=== PATIENT | female | born 1940 | race Caucasian/White ===

== ENCOUNTER 2018-10-28 22:50 | Inpatient (IN) | payer BC, MEDICARE ==
[~2018-10-28] VITALS: Ht 162.6 cm; Wt 63.5 kg
[2018-10-28 22:50] VITALS: BP 114/49
--- NOTE | 2018-10-28 22:50 | NUR ---
ED Nurse Note: pt brought in by [facility] from home c/o sob progressively worsen. pt received breathing tx x1 enr. pt AA&ox4, gcs=15, skin warm and dry, tachypnea, normal skin s/s, LS= exp wheezing to auscultation, -n/v/d, +edema BLE, unable to assess gait at this time. NSR, o2sat 86% on RA, o2=2L via NC started ERMD notified, pt 96% on oxygen, skin intact, family at the bedside, vss, will cont monitor. RT contacted
[2018-10-28] MEDS ORDERED: Solu-MEDROL 125mg Inj IVP ONE (23:30)
[2018-10-28] MEDS ORDERED: Albuterol ud Inhalation HHN ONE (23:30)
[2018-10-28] MEDS ORDERED: Ipratropium 0.02% Inh Soln 2.5ml UD HHN ONE (23:30)
[2018-10-28] MEDS ORDERED: Norco 5mg/325mg tab ORAL ONE (23:30)
[2018-10-28 23:36] LABS: BASOPHILS % (AUTO) 1.1 % (0.0-2.0); EOSINOPHILS % (AUTO) 4.2 % (0.0-3.0); HEMATOCRIT 40.4 % (37.0-47.0); HEMOGLOBIN 12.9 G/DL (12.0-16.0); LYMPHOCYTES % (AUTO) 27.1 % (20.0-45.0); MEAN CORPUSCULAR VOLUME 94 FL (80-99); MONOCYTES % (AUTO) 7.1 % (1.0-10.0); NEUTROPHILS % (AUTO) 60.5 % (45.0-75.0); PLATELET COUNT 220 K/UL (150-450); RED BLOOD COUNT 4.29 M/UL (4.20-5.40); RED CELL DISTRIBUTION WIDTH 11.9 % (11.6-14.8)
--- NOTE | 2018-10-28 23:38 | NUR ---
ED Nurse Note: RT at the bedside, pt receiving breathing tx, pt given med for vargas per ERMD order.
[2018-10-28 23:44] LABS: ANION GAP 6 mmol/L (5-15); BLOOD UREA NITROGEN 8 mg/dL (7-18); CALCIUM 9.2 MG/DL (8.5-10.1); CARBON DIOXIDE 32 MMOL/L (21-32); CHLORIDE 104 MMOL/L (98-107); CREATININE 1.1 MG/DL (0.55-1.30); POTASSIUM 3.1 MMOL/L (3.5-5.1); SODIUM 142 MMOL/L (136-145)
--- NOTE | 2018-10-28 23:45 | NUR ---
ED Nurse Note: lactic, blood/blood culture, flu swab sent.
--- NOTE | 2018-10-28 23:46 | NUR ---
ED Nurse Note: report given to RN Dilma and endorsed care, pt vss, currently getting breathing tx, airway intact. no neuro changes, family at the bedside.
--- NOTE | 2018-10-28 23:50 | NUR ---
ED Nurse Note: pt's family states pt was admitted to [facility] for sob for six days, RN Dilma notified and endorsed swab.
--- NOTE | 2018-10-28 23:55 | NUR ---
ED Nurse Note: RECIEVED REPORT TO RESUME CARE, PT IS IN BED AWAKE, ALERT AND ORIENTED X 4, PT HERE WITH C/O SOB SINCE AM, PT WAS SEEN AT PMD TODAY AND DIAGNOSED WITH POSSIBLE PNEUMONIA AND STARTED ON LEVAQUIN, PT STATES SHE GOT WORSE AT HOME, PT DAUGHTER AT BEDSIDE, PT IS ON CARDIAC MONITORING AND HAS PATENT SALINE LOCK, WILL RESUME CARE ORDERED AND CONTINUE TO CLOSELY MONITOR.
[2018-10-28 23:59] LABS: ALANINE AMINOTRANSFERASE 20 U/L (12-78); ALBUMIN 3.3 G/DL (3.4-5.0); ALBUMIN/GLOBULIN RATIO 0.9 (1.0-2.7); ALKALINE PHOSPHATASE 101 U/L (46-116); ASPARTATE AMINO TRANSFERASE 20 U/L (15-37); BILIRUBIN,TOTAL 0.4 MG/DL (0.2-1.0); CKMB 2.4 NG/ML (0.0-3.6); CREATINE KINASE 61 U/L (26-308)
[2018-10-29] VITALS (8 sets, daily range): BP systolic 105–132; BP diastolic 41–90
[2018-10-29] MEDS ORDERED: Morphine Sulfate 4mg/ml Inj (IV/IM USE ONLY) IVP ONE ×2 (00:45→05:00)
--- NOTE | 2018-10-29 01:15 | NUR ---
ED Nurse Note: Pt being admitted to hospital, pt daughter will bring meds in am, pt and daughter unable to name meds but states will bring them in am, pt in bed awake and alert, remains on cardiac monitoring, pt also re-medicated for pain, pt has iv levaquin with no s/s of adverse reaction noted, pt resting calmly after meds, will continue to closely monitor and preapre for admission.
--- NOTE | 2018-10-29 03:03 | Emergency Room Report ---
History of Present Illness General Chief Complaint: Dyspnea/Respdistress Source: Patient Present Illness HPI 77-year-old female presents ED for evaluation. Brought in by EMS for shortness of breath. O2 sats low at home tonight. Given breathing treatments by the EMS. Patient notes history of asthma. Questionable CHF. Takes Lasix. Was seen by PMD today and was prescribed Levaquin for a "infection". Patient states her symptoms are not improving. Denies chest pain. Denies fevers or chills. Notes productive cough. No other aggravating relieving factors. Denies any other associated symptoms Allergies: Coded Allergies: ASPIRIN (Verified Allergy, Unknown, 10/28/18) IODINE (Verified Allergy, Unknown, 10/28/18) PENICILLINS (Verified Allergy, Unknown, 10/28/18) SULFA (SULFONAMIDE ANTIBIOTICS) (Verified Allergy, Unknown, 10/28/18) Patient History Past Medical History: HTN, asthma Past Surgical History: none Pertinent Family History: none Social History: Denies: smoking, alcohol use, drug use Last Menstrual Period: MAYA Now: No Immunizations: UTD Reviewed Nursing Documentation: PMH: Agreed; PSxH: Agreed Nursing Documentation-PMH Past Medical History: No History, Except For Hx Hypertension: Yes Hx Asthma: Yes Review of Systems All Other Systems: negative except mentioned in HPI Physical Exam Vital Signs Date Time Temp Pulse Resp B/P (MAP) Pulse Ox O2 Delivery O2 Flow Rate FiO2 10/28/18 22:50 97.4 96 20 114/49 96 Nasal Cannula 2.0 10/28/18 23:31 28 Sp02 EP Interpretation: reviewed, normal General Appearance: no apparent distress, alert, GCS 15, non-toxic Head: normocephalic, atraumatic Eyes: bilateral eye normal inspection, bilateral eye PERRL ENT: hearing grossly normal, normal pharynx, no angioedema, normal voice Neck: full range of motion, supple/symm/no masses Respiratory: chest non-tender, normal breath sounds, speaking full sentences, wheezing Cardiovascular #1: regular rate, rhythm, no edema Cardiovascular #2: 2+ carotid (R), 2+ carotid (L), 2+ radial (R), 2+ radial (L) , 2+ dorsalis pedis (R), 2+ dorsalis pedis (L) Gastrointestinal: normal bowel sounds, non tender, soft, non-distended, no guarding, no rebound Rectal: deferred Genitourinary: normal inspection, no CVA tenderness Musculoskeletal: back normal, gait/station normal, normal range of motion, non- tender Neurologic: alert, oriented x3, responsive, motor strength/tone normal, sensory intact, speech normal Psychiatric: judgement/insight normal, memory normal, mood/affect normal, no suicidal/homicidal ideation Reflexes: 3+ bicep (R), 3+ bicep (L), 3+ tricep (R), 3+ tricep (L), 3+ knee (R) , 3+ knee (L) Skin: normal color, no rash, warm/dry, well hydrated Lymphatic: no adenopathy Medical Decision Making Diagnostic Impression: Primary Impression: Respiratory distress Additional Impression: Asthma Qualified Codes: J45.909 - Unspecified asthma, uncomplicated ER Course Hospital Course 77 yo F presents to ED c/o SOB, wheezing. Differential diagnoses include: Pneumonia, CHF exacerbation, pneumothorax, fluid overload Clinical course Patient placed on stretcher. On laboratory monitor. After initial history and physical, I ordered nebulizer treatments. I ordered labs, IV fluids, EKG, chest x-ray, blood cultures, UA. Labs - no leukocytosis, hemoglobin/hematocrit stable, electrolytes okay, lactate okay troponins negative CXR - R sided atelctasis, L sided effusion abx given. patient notes h/o chronic headaches - takes norco. given norco here for headache with improvement Case discussed with Dr. Wells and he agreed to the patient to his service for further care and support I feel this is a highly complex case requiring extensive working including EKG/ Rhythm strip, Xray/CT/US, Blood/urine lab work, repeat exams while in ED, and administration of strong opiates/narcotics for pain control, admission to hospital or close patient follow up. Diagnosis - respiratory distress, asthma Patient admitted to telemetry in serious condition Labs Test 10/28/18 23:00 White Blood Count 9.0 K/UL (4.8-10.8) Red Blood Count 4.29 M/UL (4.20-5.40) Hemoglobin 12.9 G/DL (12.0-16.0) Hematocrit 40.4 % (37.0-47.0) Mean Corpuscular Volume 94 FL (80-99) Mean Corpuscular Hemoglobin 30.0 PG (27.0-31.0) Mean Corpuscular Hemoglobin Concent 31.9 G/DL (32.0-36.0) Red Cell Distribution Width 11.9 % (11.6-14.8) Platelet Count 220 K/UL (150-450) Mean Platelet Volume 6.3 FL (6.5-10.1) Neutrophils (%) (Auto) 60.5 % (45.0-75.0) Lymphocytes (%) (Auto) 27.1 % (20.0-45.0) Monocytes (%) (Auto) 7.1 % (1.0-10.0) Eosinophils (%) (Auto) 4.2 % (0.0-3.0) Basophils (%) (Auto) 1.1 % (0.0-2.0) Sodium Level 142 MMOL/L (136-145) Potassium Level 3.1 MMOL/L (3.5-5.1) Chloride Level 104 MMOL/L (98-107) Carbon Dioxide Level 32 MMOL/L (21-32) Anion Gap 6 mmol/L (5-15) Blood Urea Nitrogen 8 mg/dL (7-18) Creatinine 1.1 MG/DL (0.55-1.30) Estimat Glomerular Filtration Rate mL/min (>60) Glucose Level 127 MG/DL (74-106) Lactic Acid Level 0.80 mmol/L (0.4-2.0) Calcium Level 9.2 MG/DL (8.5-10.1) Total Bilirubin 0.4 MG/DL (0.2-1.0) Aspartate Amino Transf (AST/SGOT) 20 U/L (15-37) Alanine Aminotransferase (ALT/SGPT) 20 U/L (12-78) Alkaline Phosphatase 101 U/L (46-116) Total Creatine Kinase 61 U/L (26-308) Creatine Kinase MB 2.4 NG/ML (0.0-3.6) Creatine Kinase MB Relative Index 3.9 Troponin I 0.000 ng/mL (0.000-0.056) Pro-B-Type Natriuretic Peptide 322 pg/mL (0-125) Total Protein 7.1 G/DL (6.4-8.2) Albumin 3.3 G/DL (3.4-5.0) Globulin 3.8 g/dL Albumin/Globulin Ratio 0.9 (1.0-2.7) EKG Diagnostic Results Rate: normal Rhythm: NSR ST Segments: no acute changes ASA given to the pt in ED: No Rhythm Strip Diag. Results EP Interpretation: yes Rhythm: NSR, no PVC's, no ectopy Chest X-Ray Diagnostic Results Chest X-Ray Diagnostic Results : Chest X-Ray Ordered: Yes # of Views/Limited/Complete: 1 View Indication: Shortness of Breath EP Interpretation: Yes Interpretation: no pneumothorax, other - atelectasis, effusion Impression: Other - ?PNA Electronically Signed by: Electronically signed by Nacho Rush MD Last Vital Signs Date Time Temp Pulse Resp B/P (MAP) Pulse Ox O2 Delivery O2 Flow Rate FiO2 10/29/18 00:07 98.8 10/29/18 00:00 96 31 121/49 100 Nasal Cannula 2.0 28 Status: improved Disposition: ADMITTED INPATIENT Condition: Serious Scripts Unable to Obtain Active Prescriptions or Reported Meds Referrals: NON PHYSICIAN (PCP) Nacho Rush MD Oct 29, 2018 03:03
--- NOTE | 2018-10-29 03:30 | NUR ---
ED Nurse Note: PT IN BED SLEEPING,A ROUSES EASILY TO VERBAL STIMULI, PAIN MEDS GIVEN EFFECTIVE, PT PAIN LEVEL DECREASED TO 5/10, PT REMAINS ON CARDIAC MONITORING, V/S STABLE, NO SOB OR LABORED BREATHING, IV SITE PATENT, NAD OR CHANGES NOTED, WILL CONTINUE TO CLOSELY MONITOR.
--- NOTE | 2018-10-29 05:33 | NUR ---
NURSE NOTES: Received report from Dilma MEIER over telephone. Awaiting pt's arrival. CN made aware.
--- NOTE | 2018-10-29 05:35 | NUR ---
ED Nurse Note: PT PLACED ON HOSPITAL BED FOR COMFORT, PT NOW HAS ROOM FOR ADMISSION, REPORT CALLED TO FLOOR NURSE RENEA EVANS, PT BELONGINGS LIST COMPLETED, IV SITE INTACT AND PATENT, PT ALSO C/O HAVING MORE PAIN, MD AWARE AND PT RE-MEDICATED, PT DENEIS CP, NO SOB OR LABORED BREATHING NOTED, O2 SAT=99% ON 2L N/C, PT HAS NO OPEN SKIN WOUNDS OR PRESSURE AREAS, NOTED WITH MILD BLE SWELLING, +2, PULSES ARE PRESENT AND PT IS AMBULATORY, PT BEING TAKEN TO FLOOR BED VIA HOSPITAL BED WITH RN, ER-TECH AND ACLS PROTOCOLS, NAD NOTED DURING PT TRANSPORT.
--- NOTE | 2018-10-29 06:41 | NUR ---
NURSE NOTES: Received pt from ER on chaparrita, AAOx4, ambulatory, states pain has decreased to 5/10. No distress noted. Tele monitor applied, IV site intact and saline locked, and pt's belongings list reviewed and signed. MD Wells called and most admission orders received, but will call him back once med reconciliation is completed for more orders. Current orders noted and carried out. CN made aware.
[2018-10-29] MEDS ORDERED: brio (07:02)
[2018-10-29] MEDS ORDERED: LEVAQUIN500 MG ORAL (07:02)
--- NOTE | 2018-10-29 07:03 | NUR ---
NURSE NOTES: Completed med reconciliation and called MD Wells back and left message endorsing call back to day shift RN to receive any possible orders for continuing home Rx. CN made aware.
--- NOTE | 2018-10-29 07:23 | NUR ---
HAND-OFF: Report given to Tay Valdivia RN. Pt stable but asking to be moved to different room during bedside report. Day shift RN will follow up.
[2018-10-29 07:29] LABS: HEMATOCRIT 38.8 % (37.0-47.0); HEMOGLOBIN 12.5 G/DL (12.0-16.0); MEAN CORPUSCULAR VOLUME 94 FL (80-99); PLATELET COUNT 200 K/UL (150-450); RED BLOOD COUNT 4.12 M/UL (4.20-5.40); RED CELL DISTRIBUTION WIDTH 12.1 % (11.6-14.8); WHITE BLOOD COUNT 4.1 K/UL (4.8-10.8)
--- NOTE | 2018-10-29 07:30 | NUR ---
NURSE NOTES: Received report from RENEA Colbert. Patient is resting in bed, in stable condition. No s/sx of SOB, breathing is even and unlabored. Denies any presence of pain or discomfort at this time. Bed is in lowest position, brakes engaged. Call light is kept within easy reach. Will continue to monitor patient.
[2018-10-29 07:41] LABS: ALANINE AMINOTRANSFERASE 18 U/L (12-78); ALBUMIN/GLOBULIN RATIO 0.8 (1.0-2.7); ALKALINE PHOSPHATASE 98 U/L (46-116); ANION GAP 9 mmol/L (5-15); ASPARTATE AMINO TRANSFERASE 14 U/L (15-37); BILIRUBIN,TOTAL 0.4 MG/DL (0.2-1.0); BLOOD UREA NITROGEN 10 mg/dL (7-18); CALCIUM 9.5 MG/DL (8.5-10.1); CARBON DIOXIDE 28 MMOL/L (21-32); CHLORIDE 104 MMOL/L (98-107); CREATININE 1.1 MG/DL (0.55-1.30); PHOSPHORUS 4.1 MG/DL (2.5-4.9); POTASSIUM 3.7 MMOL/L (3.5-5.1); SODIUM 141 MMOL/L (136-145)
--- NOTE | 2018-10-29 08:00 | NUR ---
NURSE NOTES: Dr. Wells called nurse station and spoke with this nurse. Dr. Wells ordered Breo inhaler standard dose 1 puff QD, Levaquin 750 mg PO QD, Tylenol 650 mg PO PRN, [place] 5/325 mg PO Q6HR PRN for mild to moderate pain, Morphine 2mg IV Q4HR PRN for severe pain, Zofran 4 mg IV Q4HR PRN for nausea and vomiting, Duoneb 1 dose QD while awake. Orders entered, noted, and carried out. Will continue to monitor patient.
[2018-10-29] MEDS ORDERED: Norco 5mg/325mg tab ORAL PRN (08:30)
[2018-10-29] MEDS ORDERED: Morphine Sulfate 2mg/ml Inj IVP PRN ×2 (08:30→13:00)
[2018-10-29] MEDS ORDERED: Albuterol/Ipratropium 3ml neb HHN SCH (09:00)
[2018-10-29] MEDS ORDERED: Breo Ellipta 100/25mcg - 14 dose INH SCH (09:00)
--- NOTE | 2018-10-29 09:56 | Consultation ---
History of Present Illness General Date patient seen: Oct 29, 2018 Chief Complaint: Dyspnea/Respdistress Present Illness HPI 77 year old female with hx of Asthma, HTN, never smoked in life, presented to ER with CC of increasing SOB and wheezing. Allergies: Coded Allergies: ASPIRIN (Verified Allergy, Unknown, 10/28/18) IODINE (Verified Allergy, Unknown, 10/28/18) PENICILLINS (Verified Allergy, Unknown, 10/28/18) SULFA (SULFONAMIDE ANTIBIOTICS) (Verified Allergy, Unknown, 10/28/18) Medication History Scheduled Levofloxacin* (Levaquin*), Unknown Dose ORAL DAILY, (Reported) [brio], DAILY, (Reported) Patient History Healthcare decision maker Resuscitation status Advanced Directive on File Past Medical/Surgical History Past Medical/Surgical History: (1) Asthma Review of Systems Respiratory: Reports: shortness of breath, wheezing Endocrine: Reports: no symptoms Hematologic/Lymphatic: Reports: no symptoms Physical Exam General Appearance: WD/WN, no apparent distress Lines, tubes and drains: peripheral, central line HEENT: normocephalic, atraumatic Neck: non-tender, normal alignment Respiratory/Chest: chest wall non-tender, lungs clear Cardiovascular/Chest: normal rate Abdomen: normal bowel sounds, non tender Genitourinary/Rectal: normal genital exam, heme negative stool Extremities: normal range of motion, non-tender Skin Exam: normal pigmentation Neurologic: vinyl installer II-XII grossly normal Last 24 Hour Vital Signs Date Time Temp Pulse Resp B/P (MAP) Pulse Ox O2 Delivery O2 Flow Rate FiO2 10/29/18 09:40 85 24 100 Nasal Cannula 2.0 28 10/29/18 09:30 85 24 98 Nasal Cannula 2.0 28 10/29/18 08:00 98.2 93 28 116/65 (82) 94 10/29/18 07:43 101 10/29/18 06:35 98.2 90 24 122/68 (86) 96 10/29/18 06:29 98.4 86 23 112/90 100 Nasal Cannula 2.0 28 10/29/18 05:55 98.4 10/29/18 04:00 98.4 86 23 112/90 100 Nasal Cannula 2.0 28 10/29/18 02:00 98.8 96 23 114/41 100 Nasal Cannula 2.0 28 88 10/29/18 00:07 98.8 2/8/19 00:07 98.8 10/29/18 00:00 98.8 96 31 121/49 100 Nasal Cannula 2.0 28 10/28/18 23:46 94 23 100 Nasal Cannula 2.0 28 10/28/18 23:31 86 31 94 Nasal Cannula 2.0 28 10/28/18 23:16 Nasal Cannula 2.0 10/28/18 23:00 92 16 Room Air 10/28/18 22:50 99.7 92 16 136/66 97 Non-Rebreather 15.0 10/28/18 22:50 97.4 96 20 114/49 96 Nasal Cannula 2.0 Laboratory Tests Test 10/28/18 23:00 10/29/18 07:05 White Blood Count 9.0 K/UL (4.8-10.8) 4.1 K/UL (4.8-10.8) #L Red Blood Count 4.29 M/UL (4.20-5.40) 4.12 M/UL (4.20-5.40) L Hemoglobin 12.9 G/DL (12.0-16.0) 12.5 G/DL (12.0-16.0) Hematocrit 40.4 % (37.0-47.0) 38.8 % (37.0-47.0) Mean Corpuscular Volume 94 FL (80-99) 94 FL (80-99) Mean Corpuscular Hemoglobin 30.0 PG (27.0-31.0) 30.4 PG (27.0-31.0) Mean Corpuscular Hemoglobin Concent 31.9 G/DL (32.0-36.0) L 32.3 G/DL (32.0-36.0) Red Cell Distribution Width 11.9 % (11.6-14.8) 12.1 % (11.6-14.8) Platelet Count 220 K/UL (150-450) 200 K/UL (150-450) Mean Platelet Volume 6.3 FL (6.5-10.1) L 6.6 FL (6.5-10.1) Neutrophils (%) (Auto) 60.5 % (45.0-75.0) % (45.0-75.0) Lymphocytes (%) (Auto) 27.1 % (20.0-45.0) % (20.0-45.0) Monocytes (%) (Auto) 7.1 % (1.0-10.0) % (1.0-10.0) Eosinophils (%) (Auto) 4.2 % (0.0-3.0) H % (0.0-3.0) Basophils (%) (Auto) 1.1 % (0.0-2.0) % (0.0-2.0) Sodium Level 142 MMOL/L (136-145) 141 MMOL/L (136-145) Potassium Level 3.1 MMOL/L (3.5-5.1) L 3.7 MMOL/L (3.5-5.1) Chloride Level 104 MMOL/L (98-107) 104 MMOL/L (98-107) Carbon Dioxide Level 32 MMOL/L (21-32) 28 MMOL/L (21-32) Anion Gap 6 mmol/L (5-15) 9 mmol/L (5-15) Blood Urea Nitrogen 8 mg/dL (7-18) 10 mg/dL (7-18) Creatinine 1.1 MG/DL (0.55-1.30) 1.1 MG/DL (0.55-1.30) Estimat Glomerular Filtration Rate mL/min (>60) mL/min (>60) Glucose Level 127 MG/DL (74-106) H 262 MG/DL (74-106) #H Lactic Acid Level 0.80 mmol/L (0.4-2.0) Calcium Level 9.2 MG/DL (8.5-10.1) 9.5 MG/DL (8.5-10.1) Total Bilirubin 0.4 MG/DL (0.2-1.0) 0.4 MG/DL (0.2-1.0) Aspartate Amino Transf (AST/SGOT) 20 U/L (15-37) 14 U/L (15-37) L Alanine Aminotransferase (ALT/SGPT) 20 U/L (12-78) 18 U/L (12-78) Alkaline Phosphatase 101 U/L (46-116) 98 U/L (46-116) Total Creatine Kinase 61 U/L (26-308) Creatine Kinase MB 2.4 NG/ML (0.0-3.6) Creatine Kinase MB Relative Index 3.9 Troponin I 0.000 ng/mL (0.000-0.056) 0.001 ng/mL (0.000-0.056) Pro-B-Type Natriuretic Peptide 322 pg/mL (0-125) H Total Protein 7.1 G/DL (6.4-8.2) 6.8 G/DL (6.4-8.2) Albumin 3.3 G/DL (3.4-5.0) L 3.0 G/DL (3.4-5.0) L Globulin 3.8 g/dL 3.8 g/dL Albumin/Globulin Ratio 0.9 (1.0-2.7) L 0.8 (1.0-2.7) L Neutrophils % (Manual) Pending Lymphocytes % (Manual) Pending Platelet Estimate Pending Platelet Morphology Pending Phosphorus Level 4.1 MG/DL (2.5-4.9) Magnesium Level 1.8 MG/DL (1.8-2.4) Microbiology Date/Time Source Procedure Growth Status 10/28/18 23:00 Nasal Nares Influenza Types A,B Antigen (CARMELLA) - Final Complete Height (Feet): 5 Height (Inches): 4.00 Weight (Pounds): 140 Medications Current Medications Medications (Trade) Dose Ordered Sig/Rajeev Route PRN Reason Start Time Stop Time Status Last Admin Dose Admin Acetaminophen (Tylenol) 650 mg Q6H PRN ORAL Mild Pain/Temp > 100.5 10/29/18 08:30 11/28/18 08:29 Acetaminophen/ Hydrocodone Bitart ([place] 5/325) 1 tab Q6H PRN ORAL Moderate Pain (Pain Scale 4-6) 10/29/18 08:30 11/05/18 08:29 Albuterol/ Ipratropium (Albuterol/ Ipratropium) 3 ml DAILY HHN 10/29/18 09:00 11/03/18 08:59 10/29/18 09:32 Fluticasone/ Vilanterol (Breo Ellipta 100/25) 1 puff DAILY INH 10/29/18 09:00 11/28/18 08:59 10/29/18 09:43 Furosemide (Lasix) 20 mg EVERY 12 HOURS IV 10/29/18 09:00 11/28/18 08:59 10/29/18 09:18 Heparin Sodium (Porcine) (Heparin 5000 units/ml) 5,000 units EVERY 8 HOURS SUBQ 10/29/18 14:00 11/28/18 13:59 Levofloxacin (Levaquin) 750 mg Q48H ORAL 10/29/18 09:00 11/05/18 08:59 10/29/18 09:18 Morphine Sulfate (Morphine Sulfate) 2 mg Q4H PRN IVP Severe Pain (Pain Scale 7-10) 10/29/18 08:30 11/05/18 08:29 10/29/18 09:18 Ondansetron HCl (Zofran) 4 mg Q4H PRN IVP Nausea & Vomiting 10/29/18 08:30 11/28/18 08:29 Assessment/Plan Problem List: (1) Acute respiratory failure ICD Codes: J96.00 - Acute respiratory failure, unspecified whether with hypoxia or hypercapnia SNOMED: 35620696 (2) Acute asthma exacerbation ICD Codes: J45.901 - Unspecified asthma with (acute) exacerbation SNOMED: 288858335 Assessment/Plan respiratory treatment check sputum iv abx iv steroids antitussives doppler of legs for swelling of left leg. dvt prophylaxis Echo to assess cardiac function. Leonela Fenton MD Oct 29, 2018 09:56
[2018-10-29] MEDS ORDERED: Solu-MEDROL 125mg Inj IVP SCH (10:00)
[2018-10-29] MEDS ORDERED: Promethazine/Codeine 5ml UD ORAL PRN ×2 (10:00→12:30)
[2018-10-29] MEDS ORDERED: Albuterol/Ipratropium 3ml neb HHN PRN (10:00)
--- NOTE | 2018-10-29 10:06 | Diagnostic Imaging Report ---
Indication: Dyspnea Comparison: None A single view chest radiograph was obtained. Findings: No definite infiltrate or pulmonary vascular congestion identified. The heart is enlarged. The aorta is mildly enlarged consistent with atherosclerotic vascular disease. Surgical clips noted in the right upper quadrant abdomen. Kyphoplasty involving one of the lower thoracic vertebra noted. Impression: No acute disease
[2018-10-29 11:38] LABS: APPEARANCE,URINE CLEAR; BILIRUBIN, URINE NEGATIVE (NEGATIVE); COLOR,URINE PALE YELLOW; GLUCOSE, URINE (UA) 1+ (NEGATIVE); KETONES,URINE NEGATIVE (NEGATIVE); LEUKOCYTE ESTERASE ,URINE 1+ (NEGATIVE); NITRITE,URINE NEGATIVE (NEGATIVE); PH,URINE 6 (4.5-8.0); PROTEIN,URINE NEGATIVE (NEGATIVE); UROBILINOGEN,URINE NORMAL MG/DL (0.0-1.0)
--- NOTE | 2018-10-29 11:48 | NUR ---
TRANSFER TO FLOOR: Patient transferred to [facility] RM 303-2, per Dr. Fenton. Report given to RENEA Gómez. Belongings and medications given to RENEA Gómez. Family informed of transfer.
[2018-10-29] MEDS: Norco 5mg/325mg tab ORAL PRN ×2 (12:33→21:53)
[2018-10-29] MEDS: Albuterol/Ipratropium 3ml neb HHN PRN ×2 (13:13→18:49)
[2018-10-29] MEDS ORDERED: Heparin 5000 units/ml inj SUBQ SCH (14:00)
--- NOTE | 2018-10-29 15:08 | Cardiology Report ---
APPROVED REPORT EXAM: Two-dimensional and M-mode echocardiogram with Doppler and color Doppler. INDICATION Shortness of breath M-Mode DIMENSIONS IVSd0.9 (0.7-1.1cm)Left Atrium (MM)3.7 (1.6-4.0cm) LVDd4.4 (3.5-5.6cm)Aortic Root3.0 (2.0-3.7cm) PWd0.9 (0.7-1.1cm)Aortic Cusp Exc.2.0 (1.5-2.0cm) LVDs2.4 (2.5-4.0cm) PWs1.2 cm Normal left ventricular chamber size, systolic function and wall motion. Left ventricular ejection fraction estimated to be 65 %. Mild left ventricular hypertrophy by 2D. Anterior Echo-free space, may be due to pericardial fat or effusion. All other cardiac chamber sizes are within normal limits. Focal aortic valve sclerosis with adequate cusp excursion. Thickened mitral valve leaflets with normal excursion. Mitral annulus and aortic root calcification. Pulmonic valve not well visualized. Normal tricuspid valve structure. IVC measured at 1.5 cm with slight physiologic collapse A color flow and spectral Doppler study was performed and revealed: No aortic regurgitation. Trace mitral regurgitation. Mitral diastolic velocities suggest reduced left ventricular relaxation c/w mild LV diastolic dysfunction (Grade I). Trace tricuspid regurgitation. Tricuspid systolic velocities suggests peak right ventricular systolic pressure of 20 mmHg.
--- NOTE | 2018-10-29 15:10 | NUR ---
NURSE NOTES: Pt breathing with assistance of nasal canula. O2 Saturation is 97 , pt states she feels as if she can not breathe. Relaxation techniques provided. Pt states she takes Ativan at home. Dr. Wells paged to report to him home medications. Has not returned call upon this writing
[2018-10-29] MEDS ORDERED: AVAPRO75 MG ORAL (15:18)
[2018-10-29] MEDS ORDERED: ATIVAN0.5 MG ORAL (15:18)
[2018-10-29] MEDS ORDERED: PANTOPRAZOLE SO40 MG ORAL (15:18)
[2018-10-29] MEDS ORDERED: MONTELUKAST SOD10 MG ORAL (15:18)
[2018-10-29] MEDS: Heparin 5000 units/ml inj SUBQ SCH ×2 (15:30→21:44)
[2018-10-29] MEDS: Solu-MEDROL 125mg Inj IVP SCH ×2 (15:57→21:40)
--- NOTE | 2018-10-29 16:19 | History & Physical ---
History and Physical History & Physicial Ryder Wells MD Oct 29, 2018 16:19
[2018-10-29] MEDS: LORazepam 0.5mg tab ORAL PRN (17:20)
--- NOTE | 2018-10-29 18:59 | NUR ---
NURSE NOTES: Pt is currently receiving breathing treatment. Provided with Ativan earlier in shift requested if she can save it for later so she can have two. Made aware of current orders verbalized understanding
--- NOTE | 2018-10-29 19:09 | NUR ---
NURSE NOTES: Sputum culture pending. Per pt has not had the desire to bring up secretions at this time, nor anytime this shift. Will inform oncoming nurse
--- NOTE | 2018-10-29 19:20 | NUR ---
NURSE NOTES: Dr Wells here earlier in shift made aware of pt request for 2 pills of Ativan at night. Pt has Ativan 0.5 mg routine, but takes one in the morning and saves two for hour of sleep. did not approve how regime is given a home
--- NOTE | 2018-10-29 19:23 | NUR ---
HAND-OFF: Report given to .Report given to Alonso made aware that sputum needs to be collected. Pt si in stable condition. Breathing room air, with intermittent use of oxygen
--- NOTE | 2018-10-29 19:28 | NUR ---
NURSE NOTES: Received report from Dalia MEIER. Pt A&O x4, laying semi-fowlers in bed. No signs of pain or distress. Pt on NC at 3L. IV site dry & intact. Call light in reach, bed in lowest position, side rails up x2. Will continue to monitor pt.
[2018-10-29] MEDS ORDERED: Theophylline ER 100mg ORAL SCH (21:00)
--- NOTE | 2018-10-29 21:30 | History and Physical Report ---
DATE OF ADMISSION: 10/29/2018 CHIEF COMPLAINT: Shortness of breath. HISTORY OF PRESENT ILLNESS: This is a 78-year-old, very delightful female with past medical history significant for asthma, hypertension who was presented to the emergency room after has started having difficulty breathing. The patient stated that she has been having a cough, nonproductive associated with severe shortness of breath. She has been noted to have a history of asthma in the past and has been taking some Lasix for ? CHF. The patient was seen by the primary physician today and was prescribed Levaquin for possible infection. However, her status got progressively worsening and was not able to breathe freely and subsequently the patient was advised to come to the emergency room. Shortly after initial evaluation in the emergency, the patient was admitted to the hospital with acute asthma exacerbation with acute hypoxemic respiratory failure. PAST MEDICAL HISTORY/PAST SURGICAL HISTORY: As above. History of hypertension, asthma. Denies any past surgical history. MEDICATIONS: Medications at home please refer to medication reconciliation. ALLERGIES: To aspirin, iodine, penicillin, and sulfa medication. SOCIAL HISTORY: The patient denies any smoking, alcohol, or drugs. FAMILY HISTORY: Noncontributory. REVIEW OF SYSTEMS: Mostly as above. Denies any dysuria, frequency, hematuria. Denies any hemoptysis, hematochezia. Complained about dry cough. Denies any loss of consciousness. Denies any suicidal or homicidal ideation. Denies any double vision. Denies any loss of consciousness. Denies any fall or head trauma. PHYSICAL EXAMINATION: VITAL SIGNS: On admission temperature 97.4, pulse of 96, respirations 20, blood pressure 114/49. GENERAL: The patient is awake, responsive, in no acute distress. HEAD AND NECK: Pupils are equal and reactive to light. Extraocular movements are intact. Neck was supple. No JVD. LUNGS: Good air entry. The patient has expiratory wheezes was noted. Decreased air in bases. HEART: S1, S2. Regular rhythm. No gallops. ABDOMEN: Soft, nondistended, nontender. Positive bowel sounds. EXTREMITIES: No cyanosis, clubbing, edema. NEUROLOGIC: Cranial nerves II through XII grossly intact. Motor is 5/5 in all extremities. Gait is intact. RECTAL: Refused and deferred. GENITOURINARY: Refused and deferred. PSYCHIATRIC: Mood and affect is intact. LABORATORY AND DIAGNOSTIC DATA: On admission from the ER, WBC of 9.0, hemoglobin of 12, hematocrit 40, platelets is 220. Sodium 142, potassium 3.1, chloride 104, bicarbonate 32, BUN 8, creatinine 1.1, glucose is 127, calcium is 9.2. Total bilirubin of 0.4, AST of 12, ALT of 12. First troponin 0.00, second troponin 0.001. Urinalysis, +1 glucose, +1 ketone, otherwise negative. Chest x-ray was done in the ER. No acute cardiopulmonary disease. Echocardiogram showed ejection fraction of 65% with anterior echo-free space may be due to the pericardial fat or effusion, thickened mitral valve leaflet, normal excursion, normal tricuspid valve structure. Systolic function and wall motion is normal. ASSESSMENT: 1. Shortness of breath with acute respiratory failure/distress, hypoxemic. 2. Acute asthma exacerbation. 3. Hypokalemia. 4. Hypertension. PLAN: Admit the patient to telemetry. We will follow up laboratory. Nebulizer treatment. Solu-Medrol. Continue broad-spectrum antibiotic with Levaquin. The patient has a penicillin allergy as well as sulfa allergy. Discussed case with Dr. Fenton from [facility]. If the patient's status improved, consider discharge home in 2 to 3 days. Ryder Wells M.D. DR: LILIANA JOB#: [id number] CC:
[2018-10-29] MEDS: Theophylline ER 100mg ORAL SCH (21:39)
[2018-10-29] MEDS: Montelukast 10mg tablet ORAL SCH (21:39)
[2018-10-30] VITALS: BP 140/76
--- NOTE | 2018-10-30 00:06 | NUR ---
NURSE NOTES: Pt c/o constipation. MD notified, awaiting response.
[2018-10-30] MEDS: Albuterol/Ipratropium 3ml neb HHN PRN ×3 (00:24→18:56)
[2018-10-30] MEDS: LORazepam 0.5mg tab ORAL PRN ×3 (01:34→23:55)
[2018-10-30 04:00] VITALS: BP 145/81
[2018-10-30] MEDS: Solu-MEDROL 125mg Inj IVP SCH ×2 (04:10→09:28)
[2018-10-30] MEDS: Heparin 5000 units/ml inj SUBQ SCH ×3 (06:12→21:26)
[2018-10-30 07:02] LABS: ALANINE AMINOTRANSFERASE 16 U/L (12-78); ALBUMIN/GLOBULIN RATIO 0.9 (1.0-2.7); ALKALINE PHOSPHATASE 83 U/L (46-116); ANION GAP 5 mmol/L (5-15); ASPARTATE AMINO TRANSFERASE 10 U/L (15-37); BILIRUBIN,TOTAL 0.3 MG/DL (0.2-1.0); BLOOD UREA NITROGEN 13 mg/dL (7-18); CALCIUM 9.7 MG/DL (8.5-10.1); CARBON DIOXIDE 31 MMOL/L (21-32); CHLORIDE 102 MMOL/L (98-107); PHOSPHORUS 2.9 MG/DL (2.5-4.9); POTASSIUM 3.3 MMOL/L (3.5-5.1); SODIUM 138 MMOL/L (136-145)
[2018-10-30 07:04] LABS: HEMATOCRIT 35.8 % (37.0-47.0); HEMOGLOBIN 11.5 G/DL (12.0-16.0); MEAN CORPUSCULAR VOLUME 94 FL (80-99); PLATELET COUNT 185 K/UL (150-450); RED CELL DISTRIBUTION WIDTH 11.7 % (11.6-14.8); WHITE BLOOD COUNT 6.8 K/UL (4.8-10.8)
--- NOTE | 2018-10-30 07:52 | NUR ---
HAND-OFF: Report given to Elvie RN. Pt is stable.
[2018-10-30 08:00] VITALS: BP 149/79
--- NOTE | 2018-10-30 08:19 | NUR ---
NURSE NOTES: informed Dr. Wells for K+ 3.3 today and c/o constipation. awaiting for a response. Addendum: 10/30/18 at 0904 by TANISHA GONZALEZ LVN OBTAINED NEW ORDER WILL IMPLEMENTED.
--- NOTE | 2018-10-30 08:30 | NUR ---
NURSE NOTES: received patient A/A/Ox4, lying in bed calm and comfortable. On O2 2L via NC. received adequate oxygenation. had adequate amount of food intake for breakfast. No c/o pain/discomfort. Not able to obtain sput cs/gs this am, nothing to expectorate. bed is in the lowest position for safety precaution. siderails are up x3 for fall risk and call light is within reach. will cont to monitor.
[2018-10-30] MEDS: Miralax 17gm pkt ORAL PRN (08:45)
[2018-10-30] MEDS: Theophylline ER 100mg ORAL SCH ×2 (08:45→21:17)
[2018-10-30] MEDS: Breo Ellipta 100/25mcg - 14 dose INH SCH (09:07)
[2018-10-30 12:05] VITALS: BP 133/69
--- NOTE | 2018-10-30 13:01 | Pulmonology Progress Note ---
Assessment/Plan Problems: (1) Acute respiratory failure (2) Acute asthma exacerbation Assessment/Plan improving respiratory treatment no sputum yet change solumedrol to qD titrate fio2 to sat of 92% dvt prophylaxis Subjective ROS Limited/Unobtainable: No Constitutional: Reports: no symptoms HEENT: Repors: no symptoms Respiratory: Reports: no symptoms Allergies: Coded Allergies: ASPIRIN (Verified Allergy, Unknown, 10/28/18) IODINE (Verified Allergy, Unknown, 10/28/18) PENICILLINS (Verified Allergy, Unknown, 10/28/18) SULFA (SULFONAMIDE ANTIBIOTICS) (Verified Allergy, Unknown, 10/28/18) Objective Last 24 Hour Vital Signs Date Time Temp Pulse Resp B/P (MAP) Pulse Ox O2 Delivery O2 Flow Rate FiO2 10/30/18 12:05 98.5 99 20 133/69 (90) 100 99 10/30/18 10:01 98.2 10/30/18 09:21 92 20 100 Nasal Cannula 2.0 28 10/30/18 09:08 89 18 98 Nasal Cannula 2.0 28 10/30/18 09:00 Nasal Cannula 2.0 10/30/18 08:45 149/79 10/30/18 08:00 98.2 92 17 149/79 (102) 100 10/30/18 07:30 98 20 Nasal Cannula 2.0 28 10/30/18 04:00 98.2 94 18 145/81 (102) 96 10/30/18 00:33 94 20 98 Nasal Cannula 2.0 28 10/30/18 00:24 91 20 96 Nasal Cannula 2.0 28 10/30/18 00:00 98.5 95 19 140/76 (97) 99 10/29/18 21:00 Nasal Cannula 2.0 10/29/18 20:00 98.7 102 17 132/69 (90) 99 10/29/18 18:56 95 20 99 Nasal Cannula 2.0 28 10/29/18 18:54 95 20 Nasal Cannula 2.0 28 10/29/18 18:49 94 20 96 Nasal Cannula 2.0 28 10/29/18 16:00 97.9 93 20 114/62 (79) 98 10/29/18 13:25 91 24 98 Nasal Cannula 2.0 28 10/29/18 13:13 90 24 95 Nasal Cannula 2.0 28 Intake and Output 10/29/18 10/30/18 19:00 07:00 Intake Total 676 ml Balance 676 ml Intake Oral 676 ml # Voids 2 Objective General Appearance: WD/WN HEENT: normocephalic, atraumatic Respiratory/Chest: chest wall non-tender, lungs clear Breasts: no masses Cardiovascular: regular rhythm Abdomen: soft, non tender, no scars Genitourinary: normal external genitalia Skin: no rash Microbiology Date/Time Source Procedure Growth Status 10/28/18 23:00 Nasal Nares Influenza Types A,B Antigen (CARMELLA) - Final Complete Laboratory Tests 10/30/18 04:50: White Blood Count 6.8#, Red Blood Count 3.80L, Hemoglobin 11.5L, Hematocrit 35.8L, Mean Corpuscular Volume 94, Mean Corpuscular Hemoglobin 30.4, Mean Corpuscular Hemoglobin Concent 32.2, Red Cell Distribution Width 11.7, Platelet Count 185, Mean Platelet Volume 7.5, Neutrophils (%) (Auto) , Lymphocytes (%) ( Auto) , Monocytes (%) (Auto) , Eosinophils (%) (Auto) , Basophils (%) (Auto) , Differential Total Cells Counted 100, Neutrophils % (Manual) 78H, Lymphocytes % (Manual) 12L, Monocytes % (Manual) 7, Eosinophils % (Manual) 0, Basophils % ( Manual) 0, Band Neutrophils 3, Platelet Estimate Adequate, Platelet Morphology Normal, Red Blood Cell Morphology Normal, Erythrocyte Sedimentation Rate 50H, Sodium Level 138, Potassium Level 3.3L, Chloride Level 102, Carbon Dioxide Level 31, Anion Gap 5, Blood Urea Nitrogen 13, Creatinine 1.0, Estimat Glomerular Filtration Rate , Glucose Level 323H, Calcium Level 9.7, Phosphorus Level 2.9, Magnesium Level 2.0, Total Bilirubin 0.3, Aspartate Amino Transf (AST /SGOT) 10L, Alanine Aminotransferase (ALT/SGPT) 16, Alkaline Phosphatase 83, C- Reactive Protein, Quantitative 0.6, Total Protein 6.4, Albumin 3.0L, Globulin 3.4, Albumin/Globulin Ratio 0.9L Current Medications Medications (Trade) Dose Ordered Sig/Rajeev Route PRN Reason Start Time Stop Time Status Last Admin Dose Admin Acetaminophen (Tylenol) 650 mg Q6H PRN ORAL Mild Pain/Temp > 100.5 10/29/18 12:00 11/28/18 11:59 10/30/18 09:31 Acetaminophen/ Hydrocodone Bitart ([place] 5/325) 1 tab Q6H PRN ORAL Moderate Pain (Pain Scale 4-6) 10/29/18 12:00 11/05/18 11:59 10/29/18 21:53 Albuterol/ Ipratropium (Albuterol/ Ipratropium) 3 ml Q4H PRN HHN dyspnea 10/29/18 12:00 11/03/18 11:59 10/30/18 09:07 Fluticasone/ Vilanterol (Breo Ellipta 100/25) 1 puff DAILY INH 10/30/18 09:00 11/28/18 08:59 10/30/18 09:07 Heparin Sodium (Porcine) (Heparin 5000 units/ml) 5,000 units EVERY 8 HOURS SUBQ 10/29/18 14:00 11/28/18 13:59 10/30/18 06:12 Irbesartan (Avapro) 75 mg DAILY ORAL 10/30/18 09:00 11/29/18 08:59 10/30/18 08:45 Levofloxacin (Levaquin) 750 mg Q48H ORAL 10/31/18 09:00 11/05/18 08:59 Lorazepam (Ativan) 0.5 mg Q8H PRN ORAL For Anxiety 10/29/18 16:15 11/05/18 16:14 10/30/18 01:34 Methylprednisolone Sodium Succinate (Solu-MEDROL) 60 mg Q6H IVP 10/29/18 16:00 11/28/18 09:59 10/30/18 09:28 Montelukast Sodium (Singulair) 10 mg QHS ORAL 10/29/18 21:00 11/28/18 20:59 10/29/18 21:39 Morphine Sulfate (Morphine Sulfate) 2 mg Q4H PRN IVP Severe Pain (Pain Scale 7-10) 10/29/18 13:00 11/05/18 12:59 Ondansetron HCl (Zofran) 4 mg Q4H PRN IVP Nausea & Vomiting 10/29/18 12:30 11/28/18 08:29 Pantoprazole (Protonix) 40 mg BID ORAL 10/29/18 18:00 11/28/18 17:59 10/30/18 08:45 Polyethylene Glycol (Miralax) 17 gm DAILYPRN PRN ORAL Constipation 10/30/18 08:00 11/29/18 07:59 10/30/18 08:45 Promethazine HCl/ Codeine (Phenergan with Codeine) 5 ml Q4H PRN ORAL For Cough 10/29/18 12:30 11/28/18 12:29 Theophylline (Erik-Dur) 100 mg EVERY 12 HOURS ORAL 10/29/18 21:00 11/28/18 20:59 10/30/18 08:45 Leonela Fenton MD Oct 30, 2018 13:01
[2018-10-30 16:00] VITALS: BP 143/82
--- NOTE | 2018-10-30 19:30 | NUR ---
NURSE NOTES: RECEIVED PATIENT LYING IN BED, AWAKE, ALERT/ORIENTED X3, FAMILY AT BEDSIDE; NO SIGNS AND SYMPTOMS OF ACUTE CARDIO RESPIRATORY DISTRESS/SHORTNESS OF BREATH, DENIES CHEST PAIN, NO PERIPHERAL EDEMA NOTED. IV SITE INTACT TO LEFT AC/GAUGE 20, NO REDNESS/SWELLING NOTED. ABDOMEN ROUND/SOFT/NON TENDER, CONTINENT OF B/B, BEDSIDE COMMODE ADJACENT TO BED. SIDE RAILS UP X3/BED IN LOWEST POSITION FOR SAFETY. CALL LIGHT WITHIN REACH. FREQUENT ROUNDING FOR SAFETY/NEEDS. NAD.
--- NOTE | 2018-10-30 19:34 | NUR ---
HAND-OFF: Report given to Karen.
[2018-10-30 20:00] VITALS: BP 149/75
[2018-10-30] MEDS: Montelukast 10mg tablet ORAL SCH (21:17)
[2018-10-30] MEDS: Norco 5mg/325mg tab ORAL PRN (21:21)
--- NOTE | 2018-10-30 23:45 | Internal Med Progress Note ---
Subjective Physician Name Ryder Wells Attending Physician Ryder Wells MD Current Medications Medications (Trade) Dose Ordered Sig/Rajeev Route PRN Reason Start Time Stop Time Status Last Admin Dose Admin Acetaminophen (Tylenol) 650 mg Q6H PRN ORAL Mild Pain/Temp > 100.5 10/29/18 12:00 11/28/18 11:59 10/30/18 16:03 Acetaminophen/ Hydrocodone Bitart ([place] 5/325) 1 tab Q6H PRN ORAL Moderate Pain (Pain Scale 4-6) 10/29/18 12:00 11/05/18 11:59 10/30/18 21:21 Al Hydroxide/Mg Hydroxide (Mylanta) 30 ml Q6H PRN ORAL GI DISCOMFORT 10/30/18 21:12 11/29/18 21:11 10/30/18 22:20 Albuterol/ Ipratropium (Albuterol/ Ipratropium) 3 ml Q4H PRN HHN dyspnea 10/29/18 12:00 11/03/18 11:59 10/30/18 18:56 Bisacodyl (Dulcolax) 10 mg DAILYPRN PRN RECTAL Constipation 10/30/18 21:13 11/29/18 21:12 Fluticasone/ Vilanterol (Breo Ellipta 100/25) 1 puff DAILY INH 10/30/18 09:00 11/28/18 08:59 10/30/18 09:07 Heparin Sodium (Porcine) (Heparin 5000 units/ml) 5,000 units EVERY 8 HOURS SUBQ 10/29/18 14:00 11/28/18 13:59 10/30/18 21:26 Irbesartan (Avapro) 75 mg DAILY ORAL 10/30/18 09:00 11/29/18 08:59 10/30/18 08:45 Levofloxacin (Levaquin) 750 mg Q48H ORAL 10/31/18 09:00 11/05/18 08:59 Lorazepam (Ativan) 0.5 mg Q8H PRN ORAL For Anxiety 10/29/18 16:15 11/05/18 16:14 10/30/18 14:09 Methylprednisolone Sodium Succinate (Solu-MEDROL) 60 mg DAILY IVP 10/31/18 09:00 11/28/18 09:59 Montelukast Sodium (Singulair) 10 mg QHS ORAL 10/29/18 21:00 11/28/18 20:59 10/30/18 21:17 Morphine Sulfate (Morphine Sulfate) 2 mg Q4H PRN IVP Severe Pain (Pain Scale 7-10) 10/29/18 13:00 11/05/18 12:59 Ondansetron HCl (Zofran) 4 mg Q4H PRN IVP Nausea & Vomiting 10/29/18 12:30 11/28/18 08:29 Pantoprazole (Protonix) 40 mg BID ORAL 10/29/18 18:00 11/28/18 17:59 10/30/18 17:22 Polyethylene Glycol (Miralax) 17 gm DAILYPRN PRN ORAL Constipation 10/30/18 08:00 11/29/18 07:59 10/30/18 08:45 Promethazine HCl/ Codeine (Phenergan with Codeine) 5 ml Q4H PRN ORAL For Cough 10/29/18 12:30 11/28/18 12:29 Theophylline (Erik-Dur) 100 mg EVERY 12 HOURS ORAL 10/29/18 21:00 11/28/18 20:59 10/30/18 21:17 Allergies: Coded Allergies: ASPIRIN (Verified Allergy, Unknown, 10/28/18) IODINE (Verified Allergy, Unknown, 10/28/18) PENICILLINS (Verified Allergy, Unknown, 10/28/18) SULFA (SULFONAMIDE ANTIBIOTICS) (Verified Allergy, Unknown, 10/28/18) Subjective awake, alert, responsive, less SOB, No CP, feels better. Objective Last Vital Signs Date Time Temp Pulse Resp B/P (MAP) Pulse Ox O2 Delivery O2 Flow Rate FiO2 10/30/18 21:51 98.3 10/30/18 20:00 99 18 149/75 (99) 99 10/30/18 19:03 Nasal Cannula 2.0 28 Laboratory Tests Test 10/30/18 04:50 White Blood Count 6.8 K/UL (4.8-10.8) # Red Blood Count 3.80 M/UL (4.20-5.40) L Hemoglobin 11.5 G/DL (12.0-16.0) L Hematocrit 35.8 % (37.0-47.0) L Mean Corpuscular Volume 94 FL (80-99) Mean Corpuscular Hemoglobin 30.4 PG (27.0-31.0) Mean Corpuscular Hemoglobin Concent 32.2 G/DL (32.0-36.0) Red Cell Distribution Width 11.7 % (11.6-14.8) Platelet Count 185 K/UL (150-450) Mean Platelet Volume 7.5 FL (6.5-10.1) Neutrophils (%) (Auto) % (45.0-75.0) Lymphocytes (%) (Auto) % (20.0-45.0) Monocytes (%) (Auto) % (1.0-10.0) Eosinophils (%) (Auto) % (0.0-3.0) Basophils (%) (Auto) % (0.0-2.0) Differential Total Cells Counted 100 Neutrophils % (Manual) 78 % (45-75) H Lymphocytes % (Manual) 12 % (20-45) L Monocytes % (Manual) 7 % (1-10) Eosinophils % (Manual) 0 % (0-3) Basophils % (Manual) 0 % (0-2) Band Neutrophils 3 % (0-8) Platelet Estimate Adequate Platelet Morphology Normal Red Blood Cell Morphology Normal Erythrocyte Sedimentation Rate 50 MM/HR (0-30) H Sodium Level 138 MMOL/L (136-145) Potassium Level 3.3 MMOL/L (3.5-5.1) L Chloride Level 102 MMOL/L (98-107) Carbon Dioxide Level 31 MMOL/L (21-32) Anion Gap 5 mmol/L (5-15) Blood Urea Nitrogen 13 mg/dL (7-18) Creatinine 1.0 MG/DL (0.55-1.30) Estimat Glomerular Filtration Rate mL/min (>60) Glucose Level 323 MG/DL (74-106) H Calcium Level 9.7 MG/DL (8.5-10.1) Phosphorus Level 2.9 MG/DL (2.5-4.9) Magnesium Level 2.0 MG/DL (1.8-2.4) Total Bilirubin 0.3 MG/DL (0.2-1.0) Aspartate Amino Transf (AST/SGOT) 10 U/L (15-37) L Alanine Aminotransferase (ALT/SGPT) 16 U/L (12-78) Alkaline Phosphatase 83 U/L (46-116) C-Reactive Protein, Quantitative 0.6 mg/dL (0.00-0.90) Total Protein 6.4 G/DL (6.4-8.2) Albumin 3.0 G/DL (3.4-5.0) L Globulin 3.4 g/dL Albumin/Globulin Ratio 0.9 (1.0-2.7) L Microbiology Date/Time Source Procedure Growth Status 10/28/18 23:00 Nasal Nares Influenza Types A,B Antigen (CARMELLA) - Final Complete Intake and Output 10/29/18 10/30/18 19:00 07:00 Intake Total 676 ml Balance 676 ml Intake Oral 676 ml # Voids 2 Objective GENERAL: The patient is awake, responsive, in no acute distress. HEAD AND NECK: Pupils are equal and reactive to light. Extraocular movements are intact. Neck was supple. No JVD. LUNGS: Good air entry. Less expiratory wheezes , Decreased air in bases. HEART: S1, S2. Regular rhythm. No Murmur or gallops. ABDOMEN: Soft, nondistended, nontender. Positive bowel sounds. EXTREMITIES: No cyanosis, clubbing, edema. NEUROLOGIC: Cranial nerves II through XII grossly intact. Motor is 5/5 in all extremities. Gait is intact. RECTAL: Refused and deferred. GENITOURINARY: Refused and deferred. PSYCHIATRIC: Mood and affect is intact. Assessment/Plan Assessment/Plan 1. Shortness of breath with acute respiratory failure/distress, hypoxemic. 2. Acute asthma exacerbation. 3. Hypokalemia. 4. Hypertension. PLAN: F/U laboratory. Nebulizer treatment. Solu-Medrol 60mg IV QD. Continue broad-spectrum antibiotic with Levaquin. Dr. Fenton from [facility]. Discharge home in Ryder Wells MD Oct 30, 2018 23:45
[2018-10-31] VITALS: BP 124/65
[2018-10-31] MEDS: Albuterol/Ipratropium 3ml neb HHN PRN (00:03)
--- NOTE | 2018-10-31 00:59 | NUR ---
NURSE NOTES: PATIENT WITH COMPLAINTS OF CONSTIPATION, NO BOWEL MOVEMENT X3 DAYS; ADMINISTERED DULCOLAX SUPPOSITORY, TOLERATED WELL. NO DISTRESS NOTED. WILL MONITOR FOR EFFECTIVENESS.
[2018-10-31 04:00] VITALS: BP 119/77
[2018-10-31] MEDS: Heparin 5000 units/ml inj SUBQ SCH ×2 (05:35→14:00)
--- NOTE | 2018-10-31 06:21 | NUR ---
NURSE NOTES: RESTED WELL, NO SIGNIFICANT CHANGE OF CONDITION NOTED THROUGHOUT THE NIGHT. SAFETY MAINTAINED. NAD.
--- NOTE | 2018-10-31 07:45 | NUR ---
NURSE NOTES: patient received A/A/Ox4, in bed. On O2 2L via NC. tolerating food intake well. no c/o pain/discomfort noted. HOB elevated to alleviate ventilation. siderails are up x3. call light is within reach. will cont to monitor.
[2018-10-31 07:53] VITALS: BP 142/78
[2018-10-31] MEDS: Theophylline ER 100mg ORAL SCH (08:14)
[2018-10-31] MEDS: Breo Ellipta 100/25mcg - 14 dose INH SCH (08:59)
[2018-10-31] MEDS ORDERED: Solu-MEDROL 40mg Inj IVP SCH (09:00)
[2018-10-31] MEDS: Miralax 17gm pkt ORAL PRN (10:12)
--- NOTE | 2018-10-31 11:06 | NUR ---
CASE MANAGEMENT: INITIAL REVIEW 78 YO F MARIJA FROM HOME CC: DYSPNEA. PMHx: HTN. ASTHMA. SI:CHF. SOB. T 97.4 HR 96 RR 20 B/P 114/49 SATS 96% ON 2L/NC K 3.1 GLU 127 BNP 322 IS: L[place]EN NEB HHN X1 SOLU MEDROL IV X1 NORCO PO X1 PATIENT ADMITTED TO MED/SURG 10/29/2018 @ 0011 DCP: PATIENT TO BE DISCHARGED TO HOME ONCE MEDICALLY CLEARED. PLAN OF CARE: Nebulizer treatment Continue broad-spectrum antibiotic with Levaquin Addendum: 10/31/18 at 1511 by Daysi Hein CM INTERQUAL MET FOR ACUTE
[2018-10-31] MEDS ORDERED: LEVOFLOXACIN500 MG ORAL (11:55)
[2018-10-31] MEDS ORDERED: PREDNISONE20 MG ORAL (11:56)
[2018-10-31 12:00] VITALS: BP 159/84
--- NOTE | 2018-10-31 12:48 | Internal Med Progress Note ---
Subjective Physician Name Ryder Wells Attending Physician Ryder Wells MD Current Medications Medications (Trade) Dose Ordered Sig/Rajeev Route PRN Reason Start Time Stop Time Status Last Admin Dose Admin Acetaminophen (Tylenol) 650 mg Q6H PRN ORAL Mild Pain/Temp > 100.5 10/29/18 12:00 11/28/18 11:59 10/30/18 16:03 Acetaminophen/ Hydrocodone Bitart ([place] 5/325) 1 tab Q6H PRN ORAL Moderate Pain (Pain Scale 4-6) 10/29/18 12:00 11/05/18 11:59 10/30/18 21:21 Al Hydroxide/Mg Hydroxide (Mylanta) 30 ml Q6H PRN ORAL GI DISCOMFORT 10/30/18 21:12 11/29/18 21:11 10/30/18 22:20 Albuterol/ Ipratropium (Albuterol/ Ipratropium) 3 ml Q4H PRN HHN dyspnea 10/29/18 12:00 11/03/18 11:59 10/31/18 00:03 Bisacodyl (Dulcolax) 10 mg DAILYPRN PRN RECTAL Constipation 10/30/18 21:13 11/29/18 21:12 10/31/18 00:34 Fluticasone/ Vilanterol (Breo Ellipta 100/25) 1 puff DAILY INH 10/30/18 09:00 11/28/18 08:59 10/30/18 09:07 Heparin Sodium (Porcine) (Heparin 5000 units/ml) 5,000 units EVERY 8 HOURS SUBQ 10/29/18 14:00 11/28/18 13:59 10/31/18 05:35 Irbesartan (Avapro) 75 mg DAILY ORAL 10/30/18 09:00 11/29/18 08:59 10/31/18 08:14 Levofloxacin (Levaquin) 750 mg Q48H ORAL 10/31/18 09:00 11/05/18 08:59 10/31/18 08:14 Lorazepam (Ativan) 0.5 mg Q8H PRN ORAL For Anxiety 10/29/18 16:15 11/05/18 16:14 10/30/18 23:55 Methylprednisolone Sodium Succinate (Solu-MEDROL) 60 mg DAILY IVP 10/31/18 09:00 11/28/18 09:59 10/31/18 09:45 Montelukast Sodium (Singulair) 10 mg QHS ORAL 10/29/18 21:00 11/28/18 20:59 10/30/18 21:17 Morphine Sulfate (Morphine Sulfate) 2 mg Q4H PRN IVP Severe Pain (Pain Scale 7-10) 10/29/18 13:00 11/05/18 12:59 Ondansetron HCl (Zofran) 4 mg Q4H PRN IVP Nausea & Vomiting 10/29/18 12:30 11/28/18 08:29 Pantoprazole (Protonix) 40 mg BID ORAL 10/29/18 18:00 11/28/18 17:59 10/31/18 08:14 Polyethylene Glycol (Miralax) 17 gm DAILYPRN PRN ORAL Constipation 10/30/18 08:00 11/29/18 07:59 10/31/18 10:12 Promethazine HCl/ Codeine (Phenergan with Codeine) 5 ml Q4H PRN ORAL For Cough 10/29/18 12:30 11/28/18 12:29 Theophylline (Erik-Dur) 100 mg EVERY 12 HOURS ORAL 10/29/18 21:00 11/28/18 20:59 10/31/18 08:14 Allergies: Coded Allergies: ASPIRIN (Verified Allergy, Unknown, 10/28/18) IODINE (Verified Allergy, Unknown, 10/28/18) PENICILLINS (Verified Allergy, Unknown, 10/28/18) SULFA (SULFONAMIDE ANTIBIOTICS) (Verified Allergy, Unknown, 10/28/18) Subjective awake, alert, responsive, less SOB, No CP, feels good. Objective Last Vital Signs Date Time Temp Pulse Resp B/P (MAP) Pulse Ox O2 Delivery O2 Flow Rate FiO2 10/31/18 12:00 98.7 81 18 159/84 (109) 97 10/31/18 09:00 Nasal Cannula 2.0 10/31/18 07:20 28 Microbiology Date/Time Source Procedure Growth Status 10/28/18 23:30 Blood Blood Culture - Preliminary NO GROWTH AFTER 48 HOURS Resulted 10/28/18 23:30 Blood Blood Culture - Preliminary NO GROWTH AFTER 48 HOURS Resulted 10/28/18 23:00 Nasal Nares Influenza Types A,B Antigen (CARMELLA) - Final Complete Intake and Output 10/30/18 10/31/18 19:00 07:00 Intake Total 360 ml 300 ml Balance 360 ml 300 ml Intake Oral 360 ml 300 ml # Voids 3 Objective GENERAL: The patient is awake, responsive, in no acute distress. HEAD AND NECK: Pupils are equal and reactive to light. Extraocular movements are intact. Neck was supple. No JVD. LUNGS: Good air entry. Less expiratory wheezes , Decreased air in bases. HEART: S1, S2. Regular rhythm. No Murmur or gallops. ABDOMEN: Soft, nondistended, nontender. Positive bowel sounds. EXTREMITIES: No cyanosis, clubbing, edema. NEUROLOGIC: Cranial nerves II through XII grossly intact. Motor is 5/5 in all extremities. Gait is intact. RECTAL: Refused and deferred. GENITOURINARY: Refused and deferred. PSYCHIATRIC: Mood and affect is intact. Assessment/Plan Assessment/Plan 1. Shortness of breath with acute respiratory failure/distress, hypoxemic. 2. Acute asthma exacerbation. 3. Hypokalemia. 4. Hypertension. PLAN: F/U laboratory. Nebulizer treatment. switch Solu-Medrol 60mg IV QD to prednisone 20mg daily. Continue broad-spectrum antibiotic with Levaquin. Dr. Fenton from [facility]. Discharge home today. 2D Echo: Normal left ventricular chamber size, systolic function and wall motion. Left ventricular ejection fraction estimated to be 65 %. Mild left ventricular hypertrophy by 2D. Anterior Echo-free space, may be due to pericardial fat or effusion. All other cardiac chamber sizes are within normal limits. Focal aortic valve sclerosis with adequate cusp excursion. Thickened mitral valve leaflets with normal excursion. Mitral annulus and aortic root calcification. Pulmonic valve not well visualized. Normal tricuspid valve structure. IVC measured at 1.5 cm with slight physiologic collapse A color flow and spectral Doppler study was performed and revealed: No aortic regurgitation. Trace mitral regurgitation. Mitral diastolic velocities suggest reduced left ventricular relaxation c/w mild LV diastolic dysfunction (Grade I). Trace tricuspid regurgitation. Tricuspid systolic velocities suggests peak right ventricular systolic pressure of 20 mmHg. Ryder Wells MD Oct 31, 2018 12:48
--- NOTE | 2018-10-31 12:55 | NUR ---
NURSE NOTES: d/c home with accompanied by daughterPorsha. removed heplock and ID bands. personal belongings noted s/t/d. Rx and discharge instructions given, verbalized understanding. Dr. Wells seen patient. In stable condition. No n/v noted. no c/o pain/discomfort noted.
--- NOTE | 2018-10-31 13:05 | Cardiology Report ---
APPROVED REPORT EKG Measurement Heart [id number] Normal sinus rhythm Left anterior fascicular block Moderate voltage criteria for LVH, may be normal variant Abnormal ECG
--- NOTE | 2018-10-31 20:27 | Pulmonology Progress Note ---
Assessment/Plan Problems: (1) Acute respiratory failure (2) Acute asthma exacerbation Assessment/Plan improving respiratory treatment no sputum yet change to prednisone titrate fio2 to sat of 92% dvt prophylaxis wants to go home, prescription given Subjective ROS Limited/Unobtainable: No Allergies: Coded Allergies: ASPIRIN (Verified Allergy, Unknown, 10/28/18) IODINE (Verified Allergy, Unknown, 10/28/18) PENICILLINS (Verified Allergy, Unknown, 10/28/18) SULFA (SULFONAMIDE ANTIBIOTICS) (Verified Allergy, Unknown, 10/28/18) Objective Last 24 Hour Vital Signs Date Time Temp Pulse Resp B/P (MAP) Pulse Ox O2 Delivery O2 Flow Rate FiO2 10/31/18 12:00 98.7 81 18 159/84 (109) 97 10/31/18 09:00 Nasal Cannula 2.0 10/31/18 08:14 142/78 10/31/18 07:53 98.6 91 18 142/78 (99) 97 10/31/18 07:20 97 Nasal Cannula 2.0 28 10/31/18 07:20 6 14 Nasal Cannula 2.0 28 10/31/18 07:20 Nasal Cannula 2.0 28 10/31/18 04:00 98.0 83 18 119/77 (91) 97 10/31/18 00:08 92 20 100 Nasal Cannula 2.0 28 10/31/18 00:00 97.9 90 18 124/65 (84) 96 10/31/18 00:00 97 18 96 Nasal Cannula 2.0 28 10/30/18 21:51 98.3 10/30/18 21:00 Nasal Cannula 2.0 Intake and Output 10/30/18 10/31/18 19:00 07:00 Intake Total 360 ml 300 ml Balance 360 ml 300 ml Intake Oral 360 ml 300 ml # Voids 3 Objective General Appearance: WD/WN HEENT: normocephalic, atraumatic Respiratory/Chest: chest wall non-tender, lungs clear Breasts: no masses Cardiovascular: regular rhythm Abdomen: soft, non tender, no scars Genitourinary: normal external genitalia Skin: no rash Microbiology Date/Time Source Procedure Growth Status 10/28/18 23:30 Blood Blood Culture - Preliminary NO GROWTH AFTER 48 HOURS Resulted 10/28/18 23:30 Blood Blood Culture - Preliminary NO GROWTH AFTER 48 HOURS Resulted 10/28/18 23:00 Nasal Nares Influenza Types A,B Antigen (CARMELLA) - Final Complete Leonela Fenton MD Oct 31, 2018 20:27
--- NOTE | 2018-11-01 12:28 | Discharge Summary ---
Discharge Summary Discharge Summary _ DATE OF ADMISSION: 10/29/2018 DATE OF DISCHARGE: 10/31/2018 DISCHARGED BY: Dr. Wells REASON FOR ADMISSION: 78 years old female with past medical history of hypertension, asthma, presented to emergency department with difficulty breathing. Patient reported nonproductive cough associated with severe shortness of breath. Patient was seen by primary care provider on the day prior to presentation to emergency department and was prescribed Levaquin for possible infection. However she got progressively worse and was not able to breathe. Subsequently patient was advised to come to the emergency department for further evaluation and management. Patient required supplemental oxygen and with oxygen via nasal cannula, pulse oximetry was 96%. Patient was afebrile with stable heart rate. Laboratory workup revealed no leukocytosis ,stable hemoglobin and hematocrit; lactic acid within normal limits. Potassium 3.1 , otherwise stable renal parameters and electrolytes , glucose 122. Troponin negative , pro BNP 322 . ECG revealed sinus rhythm, no acute ischemic changes. Urinalysis revealed no evidence of urinary tract infection . Chest x-ray revealed no acute cardiopulmonary pathology . Patient was admitted with the acute asthma exacerbation and acute hypoxemic respiratory failure CONSULTANTS: pulmonary Dr. Fenton [facility]: Patient admitted . Supplemental oxygen provided to keep pulse oximetry above 90%. Pulmonary toilet provided via hand held nebulizer and by chest physical therapy. Patient was started on intravenous steroids with gradual tapering down. Patient was started on empiric antibiotic. Influenza screen test was negative. Blood cultures were negative. CXR revealed no evidence of acute cardiopulmonary pathology. Trial of theophylline started. Antitussive provided as needed. Singulair and Breo inhalers continued. Repeated troponin was negative as well. Echocardiogram revealed preserved ejection fraction 65% with mild left ventricular hypertrophy. No evidence of wall motion abnormality. Blood pressure was managed with ARB and remained stable. DVT and GI prophylaxis provided. Potassium was repleted. Magnesium was stable. Bowel regimen instituted. Supportive care provided. Steroids changed via oral route upon discharge. Patient clinically stabilized and was ready for discharge home. FINAL DIAGNOSES: Acute respiratory failure -resolved Acute asthma exacerbation. Hypokalemia Hypertension DISCHARGE MEDICATIONS: See Medication Reconciliation list. DISCHARGE INSTRUCTIONS: Patient was discharged home . Follow up with primary care provider in one week. I have been assigned to dictate discharge summary for this account. I was not involved in the patient's management. Naz Giron NP Nov 01, 2018 12:28
== END 2018-10-31 15:08 | disposition home or self-care (01) | DRG 189 ==
LOC: EDBD 22:50 → EMR 23:09 → EDBD 10-29 00:11 → 2W 10-29 00:11 → EDBEDREQ 10-29 04:45 → 2W 10-29 11:40 → 3E 10-29 11:42
DX: J96.01 Acute respiratory failure with hypoxia (principal); J45.901 Unspecified asthma with (acute) exacerbation; E87.6 Hypokalemia; I10 Essential (primary) hypertension; Z88.0 Allergy status to penicillin; Z82.2 Family history of deafness and hearing loss
CPT/HCPCS: 36415; 71045; 80053; 81003; 82550; 82553; 83605; 83735; 83880; 84100; 84484; 85007; 85025; 85651; 86140; 86710; 87040; 93005; 93306; 94640; 94664; 94760; J7620; J8499